=== PATIENT | female | born 1975 | race Asian ===

== ENCOUNTER 2016-05-31 11:11 | Emergency (ER) | payer BC ==
[~2016-05-31] VITALS: Ht 157.5 cm; Wt 54.4 kg
[2016-05-31 11:11] VITALS: BP 141/94; PULSE 56; RESP 16; TEMP 97; O2SAT 97
--- NOTE | 2016-05-31 11:15 | NUR ---
Patient to ER bed 8 to gown for evaluation. Side rails up. Report given to ROGELIO JORDAN.
[2016-05-31] MEDS ORDERED: PROCHLORPERAZINE EDISYLATE 10 MG/2 ML VIAL IVP ONE (11:30)
[2016-05-31] MEDS ORDERED: NACL 0.9% 1,000 ML IV ONE (11:30)
[2016-05-31] MEDS ORDERED: DEXAMETHASONE SOD PHOSPHATE 10 MG/ML VIAL IVP ONE (11:30)
--- NOTE | 2016-05-31 11:30 | NUR ---
PT BIB EMS C/O SUDDEN ONSET OF DIZZINESS AND VOMITING AT WORK.PT H/O HTN.
--- NOTE | 2016-05-31 11:35 | NUR ---
NICOLE Brush at bedside examining patient.
[2016-05-31 12:12] LABS: BASOPHILS % (AUTO) 0.2 % (0.0-2.0); EOSINOPHILS # (AUTO) 0.1 K/uL (0.0-0.4); EOSINOPHILS % (AUTO) 0.6 % (0.0-4.0); HEMATOCRIT 42.7 % (36-48); HEMOGLOBIN 14.6 g/dL (12.0-16.0); LYMPHOCYTES # (AUTO) 1.6 K/uL (1.0-5.5); MEAN CORPUSCULAR HEMOGLOBIN 32 pg (27-31); MEAN CORPUSCULAR HGB CONC 34 % (32-36); MEAN CORPUSCULAR VOLUME 95 fL (79.0-98.0); MONOCYTES # (AUTO) 0.6 K/uL (0.0-1.0); MONOCYTES % (AUTO) 6.3 % (1.7-9.3); NEUTROPHILS # (AUTO) 7.8 K/uL (1.8-7.7); NEUTROPHILS % (AUTO) 76.9 % (40.0-70.0); PLATELET COUNT (AUTO) 264 K/uL (130-430); RED BLOOD CELL COUNT(AUTO) 4.52 MIL/uL (4.2-6.2); RED CELL DISTRIBUTION WIDTH 12.7 % (9.0-15.0); WHITE BLOOD COUNT (AUTO) 10.1 K/uL (4.8-10.8)
[2016-05-31 12:14] LABS: CALCIUM 8.4 mg/dL (8.4-11.0); CREATININE 0.74 mg/dL (0.55-1.30); POTASSIUM 3.8 mmol/L (3.5-5.1)
[2016-05-31 12:18] LABS: ALBUMIN 3.3 g/dL (3.4-4.8); TOTAL BILIRUBIN 0.4 mg/dL (0.0-1.0)
--- NOTE | 2016-05-31 12:36 | NUR ---
pt to radiology via charlie
[2016-05-31 13:45] VITALS: BP 140/90; PULSE 62; RESP 16; TEMP 97; O2SAT 98
[2016-05-31] MEDS ORDERED: MECLIZINE HCL 25 MG TABLET (ANITVERT) PO ONE (13:45)
--- NOTE | 2016-05-31 13:50 | NUR ---
PT MEDICATED WILL MONITOR PRIOR TO D/C.
--- NOTE | 2016-05-31 14:00 | NUR ---
Patient given written and verbal discharge instructions and verbalizes understanding. ER MD discussed with patient the results and treatment provided. Given copies of tests performed in ER. Patient in stable condition. ID arm band removed. IV catheter removed intact and dressing applied, no active bleeding. Rx of ANTIVERT given. Patient educated on pain management and to follow up with PMD. Pain Scale 0. Opportunity for questions provided and answered.
== END 2016-05-31 13:45 | disposition home or self-care (01) ==
LOC: SED 11:11
DX: R55 Syncope and collapse (principal); R42 Dizziness and giddiness; I10 Essential (primary) hypertension
CPT/HCPCS: 36415; 70450; 80053; 84703; 85025; 93005; 96361; 96374; 96375; 99285; J0780; J1100; J7030; J8597